=== PATIENT | male | born 1990 | race Caucasian/White ===

== ENCOUNTER 2020-05-02 10:50 | Emergency (ER) | payer BC, OTHER ==
[2020-05-02 10:57] VITALS: BP 146/87; PULSE 115; TEMP 98; BMI 24.4
[2020-05-02] MEDS ORDERED: AMOX TR/POT CLAV 875MG/125MG TABLETS (FP) PO ONE (11:08)
[2020-05-02] MEDS ORDERED: RABIES VACCINE (PCEC)/PF 2.5 UNIT/VIAL IM ONE ×2 (11:08→11:32)
[2020-05-02] MEDS ORDERED: RABIES IMMUNE GLOBULIN 300 UNITS/1 ML VIAL IM ONE (11:08)
[2020-05-02] MEDS ORDERED: AMOX TR/POT CLAV 875MG/125MG TABLETS (FP) ONE (11:31)
== END 2020-05-02 12:11 | disposition home or self-care (01) ==
LOC: JERFT 10:50
PROC: 3E0234Z Introduction of Serum, Toxoid and Vaccine into Muscle, Percutaneous Approach (ICD-10-PCS; principal; 2020-05-02)
PROC: 3E033GC Introduction of Other Therapeutic Substance into Peripheral Vein, Percutaneous Approach (ICD-10-PCS; 2020-05-02)
DX: S61.451A Open bite of right hand, initial encounter (principal)
CPT/HCPCS: 90375; 90675; 99284-25

== ENCOUNTER 2020-05-09 11:46 | Emergency (ER) | payer BC, OTHER ==
[2020-05-09 12:00] VITALS: BP 113/80; PULSE 98; TEMP 97.5; BMI 27.3
[2020-05-09] MEDS ORDERED: RABIES VACCINE (PCEC)/PF 2.5 UNIT/VIAL IM ONE (12:07)
[2020-05-09] MEDS ORDERED: RABIES IMMUNE GLOBULIN 300 UNITS/1 ML VIAL ONE (12:09)
== END 2020-05-09 12:19 | disposition home or self-care (01) ==
LOC: JERFT 11:46
PROC: 3E0234Z Introduction of Serum, Toxoid and Vaccine into Muscle, Percutaneous Approach (ICD-10-PCS; principal; 2020-05-09)
DX: Z29.14 Encounter for prophylactic rabies immune globulin (principal)
CPT/HCPCS: 90675; 99284-25

== ENCOUNTER 2020-05-13 16:59 | Emergency (ER) | payer BC, OTHER ==
[2020-05-13 17:18] VITALS: BP 148/79; PULSE 81; TEMP 98.1; BMI 27.3
[2020-05-13] MEDS ORDERED: RABIES VACCINE (PCEC)/PF 2.5 UNIT/VIAL IM ONE ×3 (18:30→19:07)
== END 2020-05-13 19:30 | disposition home or self-care (01) ==
LOC: JERFT 16:59 → JER 16:59 → JERFT 19:30
PROC: 3E0234Z Introduction of Serum, Toxoid and Vaccine into Muscle, Percutaneous Approach (ICD-10-PCS; principal; 2020-05-13)
DX: Z29.14 Encounter for prophylactic rabies immune globulin (principal)
CPT/HCPCS: 90675; 99284-25

== ENCOUNTER 2020-05-20 09:54 | Emergency (ER) | payer BC, OTHER ==
[2020-05-20 10:07] VITALS: BP 123/73; PULSE 68; TEMP 98.2; BMI 27.3
[2020-05-20] MEDS ORDERED: RABIES VACCINE (PCEC)/PF 2.5 UNIT/VIAL IM ONE ×2 (10:18→10:28)
== END 2020-05-20 11:00 | disposition home or self-care (01) ==
LOC: JER 09:54 → JERFT 09:54
PROC: 3E0234Z Introduction of Serum, Toxoid and Vaccine into Muscle, Percutaneous Approach (ICD-10-PCS; principal; 2020-05-20)
DX: Z20.3 Contact with and (suspected) exposure to rabies (principal)
CPT/HCPCS: 90675; 99284-25